=== PATIENT | female | born 1955 | race Caucasian/White ===

== ENCOUNTER 2019-02-20 20:09 | Emergency (ER) | payer OTHER ==
[2019-02-20 20:53] LABS: #Basophils 0.1 thou/uL (0.0-0.2); #Eosinphils 0.1 thou/uL (0.0-0.7); #Lymphocytes 1.7 thou/uL (1.20-3.40); #Monocytes 0.5 thou/uL (0.11-0.59); #Neutrophils 4.6 thou/uL (1.40-6.50); %Basophils 1.5 % (0.0-1.0); %Eosinophils 0.7 % (0.0-10.0); %Lymphocytes 24.4 % (21.0-51.0); %Monocytes 6.6 % (0.0-10.0); %Neutrophils 66.7 % (42.0-75.0); Hemoglobin 13.2 g/dL (12.0-16.0); Mean Corpuscular HGB CONC 33.4 g/dL (32.0-36.0); Mean Corpuscular Hemoglobin 32.2 pg (27.0-31.0); Mean Corpuscular Volume 96.4 fL (78.0-98.0); Platelet Count 226 thou/uL (130-400); RBC Distribution Width 11.3 % (11.5-14.5); Red Blood Cell (RBC) Count 4.08 mill/uL (4.20-5.40)
--- NOTE | 2019-02-20 21:45 | CT ---
CT Abdomen Pelvis WO Con 02/20/2019 12:00 AM HISTORY: Left flank pain in a patient with history of kidney stones. COMPARISON: None. Technique: Multiple contiguous axial CT images are obtained through the abdomen and pelvis without IV contrast. Coronal reformats are provided. FINDINGS: This examination is limited for the evaluation of solid organs and vascular structures due to the lac k of intravenous contrast. Lower Chest: within normal limits. Abdomen: Liver: within normal limits. Gallbladder: Within normal limits for CT imaging. Pancreas: within normal limits. Spleen: within normal limits. Adrenals: within normal limits. Kidneys: There is a 9 mm x 5 mm calculus seen at the left UPJ with resultant mild left hydronephrosis and distention of an extrarenal pelvis on the left. No renal calculi are seen bilaterally, and there is no evidence of a right ureteral calculus or hydronephrosis. Mild periureteral inflammatory s tranding is seen on the left the level of the calculus. Pelvis: Urinary bladder: Incompletely distended but otherwise grossly within normal limits. Reproductive Organs: Evidence of hysterectomy. Lymph Nodes: No enlarged lymph nodes. Bowel: A small hiatal hernia is present. Scattered colonic diverticuli are visualized. Loops of small bowel are normal in caliber. Appendix: Not visualized. Peritoneum: No free fluid, free air, or fluid collection. Retroperitoneum: within normal limits. Vessels: Vascular calcifications are seen in the abdominal aorta and iliac arteries. Abdominal Wall: within normal limits. Bones: Degenerative changes are seen in the spine. IMPRESSION: 1. Partially obstructing left UPJ calculus with resultant mild left hydronephrosis as well as promine nt distention of an extrarenal pelvis on the left. Mild periureteral inflammatory stranding is present at the level of the calculus. 2. No right renal or ureteral calculus is present.
[2019-02-20 21:46] LABS: ALT (SGPT) 14 U/L (8-55); AST (SGOT) 17 U/L (5-34); Alkaline Phosphatase 94 U/L (40-150); Anion Gap 14 mmol/L (10-20); BUN (Urea Nitrogen) 13 mg/dL (9.8-20.1); Bilirubin, Total 0.3 mg/dL (0.2-1.2); Calc. Creatinine Clearance 0 mL/min (70-130); Calcium 9.5 mg/dL (7.8-10.44); Carbon Dioxide 24 mmol/L (23-31); Chloride 103 mmol/L (98-107); Estimated GFR-MDRD 35; Globulin 3.1 g/dL (2.4-3.5); Glucose 98 mg/dL (80-115); Lipase 25 U/L (8-78); Potassium 4.4 mmol/L (3.5-5.1); Protein, Total 7.1 g/dL (6.0-8.3); Sodium 137 mmol/L (136-145)
[2019-02-20 21:52] LABS: Bilirubin Negative (Negative); Blood, Urine Moderate (Negative); Clarity CLOUDY (Clear); Glucose, Urine (Dipstick) Negative (Negative); Leukocyte Small (Negative); Nitrite Negative (Negative); Protein, Urine (Dipstick) 100 mg/dL (Neg-Trace)
[2019-02-20 21:54] LABS: Bacteria/HPF 1+ HPF (None Seen); Pathc Cast-AUWi Flag 3.26 (0-2.49); WBC/HPF 21-50 HPF (0-3)
[2019-02-20] MEDS ORDERED: Ketorolac Tromethamine 30 MG/ML VIAL ONE (22:03)
[2019-02-20 22:08] LABS: Crystals/HPF 3+ CA OXALATE HPF (Negative)
[2019-02-20] MEDS ORDERED: Morphine 4 MG/ML VIAL ONE (22:54)
== END 2019-02-20 23:51 | disposition home or self-care (01) ==
LOC: ERS 20:09
DX: N13.2 Hydronephrosis with renal and ureteral calculous obstruction (principal); E78.5 Hyperlipidemia, unspecified; Z86.73 Personal history of transient ischemic attack (TIA), and cerebral infarction without residual deficits; F90.9 Attention-deficit hyperactivity disorder, unspecified type; F41.9 Anxiety disorder, unspecified; F32.9 Major depressive disorder, single episode, unspecified; Z79.899 Other long term (current) drug therapy
CPT/HCPCS: 36415; 74176; 80053; 81003; 81015; 83690; 85025; 96361; 96374; 96375; J1885; J2270

== ENCOUNTER 2020-09-25 12:43 | Emergency (ER) | payer BC, SELFPAY ==
--- NOTE | 2020-09-25 13:48 | RAD ---
LEFT ANKLE 3 VIEWS: Date: 09/25/2020 HISTORY: Injury, left ankle pain. FINDINGS/IMPRESSION: Soft tissue swelling is present. There are fractures involving the medial and lateral malleoli with m inimal displacement of the medial malleolar fracture. POS: AH
== END 2020-09-25 14:35 | disposition home or self-care (01) ==
LOC: ERS 12:43
DX: S82.842A Displaced bimalleolar fracture of left lower leg, initial encounter for closed fracture (principal); S82.402A Unspecified fracture of shaft of left fibula, initial encounter for closed fracture; S82.202A Unspecified fracture of shaft of left tibia, initial encounter for closed fracture; M35.00 Sjogren syndrome, unspecified; D68.51 Activated protein C resistance; M19.90 Unspecified osteoarthritis, unspecified site; E78.5 Hyperlipidemia, unspecified; Z86.73 Personal history of transient ischemic attack (TIA), and cerebral infarction without residual deficits; X50.9XXA Other and unspecified overexertion or strenuous movements or postures, initial encounter
CPT/HCPCS: 29515